=== PATIENT | female | born 1995 | race Caucasian/White ===

== ENCOUNTER 2017-01-23 18:02 | Emergency (ER) | payer OTHER ==
[~2017-01-23] VITALS: Ht 170.2 cm; Wt 81.6 kg
[2017-01-23 18:17] VITALS: BP 131/73
--- NOTE | 2017-01-23 19:21 | NUR ---
TO ER BED 5
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
[2017-01-23] MEDS ORDERED: HYDROcodone/APAP 5/325 MG 1 TAB TAB PO ONE (20:00)
[2017-01-23 20:38] VITALS: BP 139/86
--- NOTE | 2017-01-23 20:38 | NUR ---
Patient discharged with v/s stable. Written and verbal after care instructions given and explained. Patient verbalized understanding. Ambulatory with steady gait. All questions addressed prior to discharge. Advised to follow up with PMD. PT AND BOYFRIEND VERBALIZED THAT PT WILL BE DRIVEN HOME BY BOYFRIEND
== END 2017-01-23 20:38 | disposition home or self-care (01) ==
LOC: MED 18:02
DX: S00.432A Contusion of left ear, initial encounter (principal); S09.90XA Unspecified injury of head, initial encounter; Y04.0XXA Assault by unarmed brawl or fight, initial encounter; Y93.89 Activity, other specified; Y92.89 Other specified places as the place of occurrence of the external cause; Y99.8 Other external cause status

== ENCOUNTER 2017-11-22 20:21 | Emergency (ER) | payer OTHER ==
[~2017-11-22] VITALS: Ht 170.2 cm; Wt 77.1 kg
[2017-11-22 20:25] VITALS: BP 100/65
--- NOTE | 2017-11-22 20:30 | NUR ---
PT. AMBULATED TO LOBBY, NO S/SX OF DISTRESS AT THIS TIME.
--- NOTE | 2017-11-22 20:39 | NUR ---
AMBULATED TO ER OF2
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
[2017-11-22 21:34] VITALS: BP 101/68
--- NOTE | 2017-11-22 21:34 | NUR ---
Patient discharged with v/s stable. Written and verbal after care instructions given and explained. Patient alert, oriented and verbalized understanding of instructions. Ambulatory with steady gait. All questions addressed prior to discharge. ID band removed. Patient advised to follow up with PMD. Rx of REGLAN 10MG given. Patient educated on indication of medication including possible reaction and side effects. Opportunity to ask questions provided and answered.
== END 2017-11-22 21:34 | disposition home or self-care (01) ==
LOC: MED 20:21
DX: O21.0 Mild hyperemesis gravidarum (principal); Z3A.11 11 weeks gestation of pregnancy; Z88.0 Allergy status to penicillin
CPT/HCPCS: 81002; 81025; 99283

== ENCOUNTER 2017-12-06 17:05 | Emergency (ER) | payer OTHER ==
[~2017-12-06] VITALS: Ht 170.2 cm; Wt 78.1 kg
[2017-12-06 17:23] VITALS: BP 114/74
--- NOTE | 2017-12-06 18:25 | NUR ---
patient taken to bed #3
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
--- NOTE | 2017-12-06 19:05 | NUR ---
Pt report given to ADAN BUTCHER. Transfer of care at this time.
--- NOTE | 2017-12-06 19:06 | NUR ---
PATIENT EXPRESSES WISH TO LEAVE DUE TO WAIT TIME. MANAGER BEHAVIOR AND DR. ELKINS MADE AWARE.
--- NOTE | 2017-12-06 20:10 | NUR ---
[place] SWAB COLLECTED AND SENT TO LAB.
[2017-12-06 21:00] VITALS: BP 119/75
--- NOTE | 2017-12-06 21:00 | NUR ---
Patient discharged with v/s stable. Written and verbal after care instructions given and explained. Patient verbalized understanding. Ambulatory with steady gait. All questions addressed prior to discharge. Advised to follow up with PMD.
[2017-12-09 06:21] LABS: CHLAMYDIA TRACHOMATIS AMP DNA Negative (Negative)
== END 2017-12-06 21:00 | disposition home or self-care (01) ==
LOC: MED 17:05
DX: O21.9 Vomiting of pregnancy, unspecified (principal); Z3A.12 12 weeks gestation of pregnancy; Z88.0 Allergy status to penicillin
CPT/HCPCS: 36415; 76801; 81002; 81025; 87210; 87491; 99285; Q0092